=== PATIENT | male | born 1990 | race African-American/Black ===

== ENCOUNTER 2017-04-23 16:59 | Emergency (ER) | payer SELFPAY ==
[~2017-04-23] VITALS: Ht 188 cm; Wt 142.0 kg
[~2017-04-23 16:59] MED LIST: ALBU0.0912 IH; PRON INH
[2017-04-23 17:08] VITALS: BP 150/86
--- NOTE | 2017-04-23 21:00 | NUR ---
PATIENT PRESENTS TO ED WITH S/P FALL C/O PAIN TO LEFT FOOT . PT STATES HE FELL DOWN STAIRS DENIES LOC . DENIES N/V/D; SKIN IS PINK/WARM/DRY; AAOX4 WITH EVEN AND STEADY GAIT; LUNGS CLEAR BL; HR EVEN AND REGULAR; PT DENIES ANY FEVER, CP, SOB, OR COUGH AT THIS TIME; PATIENT STATES PAIN OF 8/10 AT THIS TIME; VSS; PATIENT POSITIONED FOR COMFORT; HOB ELEVATED; BEDRAILS UP X2; BED DOWN. ER MD MADE AWARE OF PT STATUS.
[2017-04-23 21:37] VITALS: BP 145/86
== END 2017-04-23 21:39 | disposition home or self-care (01) ==
LOC: MED 16:59
DX: S93.402A Sprain of unspecified ligament of left ankle, initial encounter (principal); J45.909 Unspecified asthma, uncomplicated; Z79.899 Other long term (current) drug therapy; X58.XXXA Exposure to other specified factors, initial encounter; Y93.02 Activity, running; Y92.89 Other specified places as the place of occurrence of the external cause; Y99.8 Other external cause status
CPT/HCPCS: 73630; 99284

== ENCOUNTER 2017-11-15 05:09 | Emergency (ER) | payer MEDICAID, OTHER ==
[~2017-11-15] VITALS: Ht 188 cm; Wt 137.0 kg
[2017-11-15 05:15] VITALS: BP 155/107
--- NOTE | 2017-11-15 05:18 | NUR ---
PT AMBULATED TO ED BED 4
--- NOTE | 2017-11-15 05:20 | NUR ---
27/M CAME IN ED, C/O SOB X2 DAYS. HX ASTHMA. PT STATED THAT HE FEELS LIKE HE USED HIS NEBULIZER TOO MUCH. LUNG SOUNDS EXPIRATORY WHEEZES BL. SPO2 96% ON ROOM AIR, RR 18 EVEN AND UNLABORED. REPORTS PRODUCTIVE COUGH WITH GREEN PHLEGM. DENIES FEVER, CP, N/V/D. PLACED ON MONITOR. ER MD MADE AWARE.
--- NOTE | 2017-11-15 06:53 | NUR ---
PT RESTING COMFORTABLY IN BED, VSS, RR EVEN AND UNLABORED. ALL NEEDS MET AT THIS TIME.
[2017-11-15] MEDS ORDERED: ALBUTEROL SULFATE/IPRATROPIU 3 ML SOL IH ONE (07:05)
--- NOTE | 2017-11-15 07:05 | NUR ---
RECEIVED REPORT FOR [facility]
[2017-11-15] MEDS ORDERED: DEXAMETHASONE 10 MG/ML VIAL IM ONE (07:10)
--- NOTE | 2017-11-15 07:12 | NUR ---
ADMITTIONG DX: SOB HX: ASTHMA LOC AWAKE AND ALERT HFW POSITION EDUCATION PROVIDE TO PATIENT WITH ACKNOWLEDGEMENT ON HHN THERAPY AND RESPIRATORY DRUG HHN THERAPY GIVEN ORDERED ENCOURAGED PATIENT FOR INTERMITTENT DEEP BREATHING DURING THERAPY
--- NOTE | 2017-11-15 07:12 | NUR ---
RT AT BEDSIDE
--- NOTE | 2017-11-15 07:32 | NUR ---
PT IS RESTING IN NO APPEARENT DISTRESS. PT STATES "I CAN BREATH GOOD NOW " . LS CLEAR THROUGHOUT, ER MD MADE AWARE.
[2017-11-15 08:15] VITALS: BP 146/94
--- NOTE | 2017-11-15 08:15 | NUR ---
Patient discharged with v/s stable. Written and verbal after care instructions given and explained. Patient alert, oriented and verbalized understanding of instructions. Ambulatory with steady gait. All questions addressed prior to discharge. ID band removed. Patient advised to follow up with PMD. Rx of AZITHROMYCIN, PERDNISONE, ALBUTEROL given. Patient educated on indication of medication including possible reaction and side effects. Opportunity to ask questions provided and answered.
== END 2017-11-15 08:15 | disposition home or self-care (01) ==
LOC: MED 05:09
DX: J45.901 Unspecified asthma with (acute) exacerbation (principal); J06.9 Acute upper respiratory infection, unspecified; Z79.899 Other long term (current) drug therapy; Z82.49 Family history of ischemic heart disease and other diseases of the circulatory system
CPT/HCPCS: 71045; 94640; 96372; 99283; J1100; J7620

== ENCOUNTER 2018-12-02 19:39 | Emergency (ER) | payer OTHER ==
[~2018-12-02] VITALS: Ht 188 cm; Wt 129.3 kg
[2018-12-02 20:08] VITALS: BP 155/95
--- NOTE | 2018-12-02 20:12 | NUR ---
TO LOBBY A/W BED AMBULATORY WITH FAMILY
--- NOTE | 2018-12-02 20:50 | NUR ---
PT TAKEN TO BED 5
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
[2018-12-02 21:38] VITALS: BP 155/95
== END 2018-12-02 21:39 | disposition home or self-care (01) ==
LOC: MED 19:39
DX: S20.219A Contusion of unspecified front wall of thorax, initial encounter (principal); S00.511A Abrasion of lip, initial encounter; J34.89 Other specified disorders of nose and nasal sinuses; J45.909 Unspecified asthma, uncomplicated; Z79.899 Other long term (current) drug therapy; V43.52XA Car driver injured in collision with other type car in traffic accident, initial encounter; W22.10XA Striking against or struck by unspecified automobile airbag, initial encounter; Y93.89 Activity, other specified; Y92.488 Other paved roadways as the place of occurrence of the external cause; Y99.8 Other external cause status
CPT/HCPCS: 99283

== ENCOUNTER 2020-10-12 19:36 | Emergency (ER) | payer MEDICAID, OTHER ==
[~2020-10-12] VITALS: Ht 188 cm; Wt 141.1 kg
[2020-10-12] MEDS ORDERED: PENI500T20 PO (21:01)
[2020-10-12] MEDS ORDERED: ONDA-24 PO (21:01)
[2020-10-12] MEDS ORDERED: ACET-8386 PO (21:01)
[2020-10-12] MEDS: KETOROLAC 30 MG/ML VIAL IM ONE (21:18)
[2020-10-12 21:19] VITALS: BP 141/67
== END 2020-10-12 21:15 | disposition home or self-care (01) ==
LOC: MED 19:36
DX: K08.89 Other specified disorders of teeth and supporting structures (principal); J45.909 Unspecified asthma, uncomplicated; Z79.899 Other long term (current) drug therapy
CPT/HCPCS: 96372; 99283; J1885

== ENCOUNTER 2021-01-24 07:39 | Emergency (ER) | payer OTHER, SELFPAY ==
[~2021-01-24] VITALS: Ht 188 cm; Wt 140.6 kg
[~2021-01-24 07:39] MED LIST changes: +ACET-8386 PO; +ONDA-188 PO; +PENI500T20 PO
[2021-01-24 07:58] VITALS: BP 175/100
[2021-01-24] MEDS ORDERED: ALBUTEROL SULFATE/IPRATROPIU 3 ML SOL IH ONE (08:20)
--- NOTE | 2021-01-24 08:20 | NUR ---
Patient ambulated to ER bed 10.
--- NOTE | 2021-01-24 08:32 | NUR ---
NICO SWAB COLLECTED AND WALKED TO LAB.
--- NOTE | 2021-01-24 08:40 | NUR ---
30/M PRESENTS TO ED WITH C/O COLD SYMPTOMS. PATIENT STATES SINCE YESTERDAY HE HAS BEEN HAVING WORSENING COLD SYMPTOMS WITH NO RELIEF, DENIES CP OR SOB. STATES HIS ASTHMA WAS "BOTHERING HIM" BUT AT THE MOMENT HAS NO DISTRESS. PATIENT STATES HE IS COVID VACCINATED BUT STATES HE "FEELS LIKE HE HAS SYMPTOMS." PATIENT IS DIAPHORETIC, NO FEVER UPON ARRIVAL, DENIES ABDOMINAL PAIN, N/V/D, URINARY SYMPTOMS OR CHILLS.
[2021-01-24] MEDS ORDERED: predniSONE 20 MG TAB PO ONE (08:45)
[2021-01-24] MEDS ORDERED: ALBU0.0912 IH (09:52)
[2021-01-24] MEDS ORDERED: AZIT250T4 PO (09:52)
[2021-01-24] MEDS ORDERED: PRED20TA5 PO (09:52)
[2021-01-24 10:18] VITALS: BP 158/98
--- NOTE | 2021-01-24 10:18 | NUR ---
Patient discharged with v/s stable. Written and verbal after care instructions given and explained ABOUT ASTHMA. Patient alert, oriented and verbalized understanding of instructions. Ambulatory with steady gait. All questions addressed prior to discharge. ID band removed. Patient advised to follow up with PMD. Rx of PREDNISONE, ZITHROMAX AND PROVENTIL given. Patient educated on indication of medication including possible reaction and side effects. Opportunity to ask questions provided and answered.
== END 2021-01-24 10:18 | disposition home or self-care (01) ==
LOC: MED 07:39
DX: J20.9 Acute bronchitis, unspecified (principal); J45.909 Unspecified asthma, uncomplicated; Z20.822 Contact with and (suspected) exposure to COVID-19; F17.210 Nicotine dependence, cigarettes, uncomplicated; Z79.51 Long term (current) use of inhaled steroids; Z79.899 Other long term (current) drug therapy; Z79.891 Long term (current) use of opiate analgesic; Z79.2 Long term (current) use of antibiotics
CPT/HCPCS: 71045; 87426; 94640; 99284; J7512; Q0092

== ENCOUNTER 2021-02-22 22:01 | Emergency (ER) | payer OTHER, SELFPAY ==
[~2021-02-22] VITALS: Ht 188 cm; Wt 140.6 kg
[~2021-02-22 22:01] MED LIST changes: +AZIT250T4 PO; +PRED20TA5 PO
[2021-02-22 22:10] VITALS: BP 128/87
--- NOTE | 2021-02-22 22:10 | NUR ---
patient in the tent
[2021-02-22] MEDS ORDERED: AMOX500C25 PO (22:43)
[2021-02-22] MEDS ORDERED: NAPR-54 PO (22:43)
[2021-02-22] MEDS ORDERED: DEXAMETHASONE 10 MG/ML VIAL PO ONE (22:45)
--- NOTE | 2021-02-22 23:13 | NUR ---
Patient discharged with v/s stable. Written and verbal after care instructions given and explained. Patient alert, oriented and verbalized understanding of instructions. Ambulatory with steady gait. All questions addressed prior to discharge. ID band removed. Patient advised to follow up with PMD. Rx of amoxicillin and naprosyn given. Patient educated on indication of medication including possible reaction and side effects. Opportunity to ask questions provided and answered.
[2021-02-22 23:16] VITALS: BP 128/87
== END 2021-02-22 23:13 | disposition home or self-care (01) ==
LOC: MED 22:01
DX: J02.9 Acute pharyngitis, unspecified (principal); F17.210 Nicotine dependence, cigarettes, uncomplicated; J45.909 Unspecified asthma, uncomplicated; Z79.899 Other long term (current) drug therapy
CPT/HCPCS: 87081; 99283; J1100

== ENCOUNTER 2021-02-26 06:54 | Emergency (ER) | payer OTHER ==
[~2021-02-26] VITALS: Ht 188 cm; Wt 148.4 kg
[~2021-02-26 06:54] MED LIST changes: +AMOX500C25 PO; +NAPR-54 PO
[2021-02-26 07:12] VITALS: BP 155/94
--- NOTE | 2021-02-26 07:17 | NUR ---
PT AMB TO BED 6.
[2021-02-26] MEDS ORDERED: KETOROLAC 15 MG/ML VIAL IVP ONE (07:25)
[2021-02-26] MEDS ORDERED: NACL 0.9% 1,000 ML IV ONE (07:25)
[2021-02-26] MEDS ORDERED: MECLIZINE 25 MG TAB PO ONE (07:30)
--- NOTE | 2021-02-26 07:35 | NUR ---
30 Y/O MALE BIB SELF FOR C/O OF 10/10 SHARP HEADACHE AND DIZZINESS. PT ABLE TO AMBULATE STEADILY BUT COMPLAINS OF FEELING IF HE IS SWAYING. AOX4, ABLE TO MAKE ALL NEEDS KNOWN. DENIES D/V. + NAUSEA. VISION IS CLEAR AND NO RECENT CHANGES HAS SEEN. PMHX: ASTHMA HOME MEDICATIONS: NONE ALLERGIES: DENIES
--- NOTE | 2021-02-26 07:45 | NUR ---
PT TAKEN TO RADIOLOGY IN [facility] FOR CT
[2021-02-26 07:46] LABS: BASOPHILS # (AUTO) 0.1 K/uL (0.00-0.22); BASOPHILS % (AUTO) 1.1 % (0.0-2.0); EOSINOPHILS # (AUTO) 0.2 K/uL (0-0.4); EOSINOPHILS % (AUTO) 2.2 % (0.0-4.0); HEMATOCRIT 42.6 % (36-52); HEMOGLOBIN 14.3 g/dL (12.0-18.0); LYMPHOCYTES # (AUTO) 2.2 K/uL (2.0-11.5); LYMPHOCYTES % (AUTO) 22.5 % (20.5-51.1); MEAN CORPUSCULAR HEMOGLOBIN 29 pg (27-31); MEAN CORPUSCULAR HGB CONC 34 g/dL (33-37); MEAN CORPUSCULAR VOLUME 87.4 fL (80-94); MONOCYTES # (AUTO) 0.5 K/uL (0.8-1.0); MONOCYTES % (AUTO) 5.6 % (1.7-9.3); NEUTROPHILS # (AUTO) 6.5 K/uL (1.8-7.7); NEUTROPHILS % (AUTO) 68.6 % (42.2-75.2); PLATELET COUNT (AUTO) 327 K/uL (140-450); RED BLOOD CELL COUNT(AUTO) 4.87 MIL/uL (4.20-6.10); RED CELL DISTRIBUTION WIDTH 14.6 % (11.6-13.7); WHITE BLOOD COUNT (AUTO) 9.6 K/uL (4.8-10.8)
--- NOTE | 2021-02-26 07:50 | NUR ---
PT RETURNED FROM CT TO 06
[2021-02-26 08:01] LABS: ALBUMIN 3.6 g/dL (3.4-5.0); ANION GAP 8.2 (8-16); CARBON DIOXIDE 28.9 mmol/L (21-32); CREATININE 1.1 mg/dL (0.6-1.3); POTASSIUM 4.1 mmol/L (3.5-5.1); TOTAL BILIRUBIN 0.4 mg/dL (0.0-1.0)
[2021-02-26 08:01] LABS: PROTHROMBIN TIME 10.3 secs (10.8-13.4)
--- NOTE | 2021-02-26 08:40 | NUR ---
URINE OBTAINED AND DIPPED, RESULTS GIVEN TO ERMD.
[2021-02-26] MEDS ORDERED: IBUP-2213 PO (09:10)
[2021-02-26] MEDS ORDERED: MECL-231 PO (09:10)
[2021-02-26] MEDS ORDERED: ACET-10509 PO (09:10)
[2021-02-26 09:32] VITALS: BP 137/73
--- NOTE | 2021-02-26 09:32 | NUR ---
Patient discharged with v/s stable. Written and verbal after care instructions given and explained WITH TEACHBACK. Patient alert, oriented and verbalized understanding of instructions. Ambulatory with steady gait. All questions addressed prior to discharge. ID band removed. Patient advised to follow up with PMD. Rx of ACETAMINOPHEN/IBUPROFEN/MECLIZONE HCL given. Patient educated on indication of medication including possible reaction and side effects. Opportunity to ask questions provided and answered.
== END 2021-02-26 09:32 | disposition home or self-care (01) ==
LOC: MED 06:56
DX: R51.9 Headache, unspecified (principal); E86.0 Dehydration; R42 Dizziness and giddiness; J45.909 Unspecified asthma, uncomplicated; Z79.899 Other long term (current) drug therapy; Z79.1 Long term (current) use of non-steroidal anti-inflammatories (NSAID); Z79.2 Long term (current) use of antibiotics; Z79.51 Long term (current) use of inhaled steroids; Z79.891 Long term (current) use of opiate analgesic
CPT/HCPCS: 36415; 70450; 80053; 81002; 85025; 85610; 96361; 96374; 99285; J1885; J7030; J8597

== ENCOUNTER 2022-06-22 21:12 | Emergency (ER) | payer OTHER ==
[~2022-06-22] VITALS: Ht 188 cm; Wt 140.6 kg
[~2022-06-22 21:12] MED LIST changes: +ACET-10509 PO; -ACET-8386 PO; +ACET-8905 PO; +IBUP-2213 PO; +MECL-231 PO
[2022-06-22 21:15] VITALS: BP 160/110
--- NOTE | 2022-06-22 21:15 | NUR ---
TO BED AMBULATORY
--- NOTE | 2022-06-22 22:20 | NUR ---
Pt is evaluation of sore throat for weak and trouble of swallowing lately with association of flu like symptom.
[2022-06-22] MEDS ORDERED: ACET-8905 PO (23:10)
[2022-06-22] MEDS ORDERED: DEXAMETHASONE 10 MG/ML VIAL PO ONE (23:10)
[2022-06-22] MEDS ORDERED: AMOX500C25 PO (23:10)
[2022-06-22] MEDS ORDERED: NAPR-54 PO (23:10)
[2022-06-22 23:25] VITALS: BP 140/78
--- NOTE | 2022-06-22 23:26 | NUR ---
Patient discharged with v/s stable. Written and verbal after care instructions given and explained. Patient verbalized understanding. Ambulatory with steady gait. All questions addressed prior to discharge. Advised to follow up with PMD. pt left with his belongings.
== END 2022-06-22 23:26 | disposition home or self-care (01) ==
LOC: MED 21:12
DX: J02.9 Acute pharyngitis, unspecified (principal); J45.909 Unspecified asthma, uncomplicated; Z79.899 Other long term (current) drug therapy
CPT/HCPCS: 87081; 99283; J1100

== ENCOUNTER 2022-08-26 10:04 | Emergency (ER) | payer OTHER ==
[~2022-08-26] VITALS: Ht 188 cm; Wt 158.8 kg
[2022-08-26 10:16] VITALS: BP 130/86
[2022-08-26] MEDS ORDERED: LOPE2CAP5 PO (10:37)
[2022-08-26] MEDS ORDERED: IBUP-2213 PO (10:37)
[2022-08-26] MEDS ORDERED: ALBU0.0912 IH (10:37)
[2022-08-26 10:44] VITALS: BP 130/86
== END 2022-08-26 10:45 | disposition home or self-care (01) ==
LOC: MED 10:04
DX: U07.1 COVID-19 (principal); R19.7 Diarrhea, unspecified; J45.909 Unspecified asthma, uncomplicated; Z79.899 Other long term (current) drug therapy
CPT/HCPCS: 99283

== ENCOUNTER 2022-10-24 17:40 | Inpatient (IN) | payer OTHER ==
[~2022-10-24] VITALS: Ht 188 cm; Wt 104.3 kg
[~2022-10-24 17:40] MED LIST changes: +LOPE2CAP5 PO
--- NOTE | 2022-10-24 17:50 | NUR ---
PT AMBULATED TO BED 9
[2022-10-24 17:52] VITALS: BP 126/75; PULSE 102; RESP 18; TEMP 98.1; O2SAT 98
--- NOTE | 2022-10-24 18:00 | NUR ---
MD BERGER AT BEDSIDE FOR EVALUATION
--- NOTE | 2022-10-24 18:07 | NUR ---
32YO MALE PT C/O GEN BODY CRAMPING xTODAY. REPORTS SUDDEN ONSET WHILE AT WORK W/ INTERMITTENT EPISODES OF DIZZINESS AND WEAKNESS. PAIN AT MOST ON MOVEMENT. BELIEVES SYMPTOMS ARE D/T RECENTLY STARTING NEW BP RX : AMLODIPINE AND TRIAMTERENE X2DAYS. DENIES N/V, CHEST PAIN, SOB, BLURRY VISION OR TAKING PAIN MEDICATION. PT AAOX4, AMB W/ STEADY GAIT. HOB POSITIONED PER COMFORT. CALL LIGHT WITHIN REACH. HX: HTN, ASTHMA NKA
[2022-10-24] MEDS ORDERED: CYCLOBENZAPRINE 10 MG TAB PO ONE (18:10)
[2022-10-24] MEDS ORDERED: KETOROLAC 15 MG/ML VIAL IVP ONE (18:10)
[2022-10-24] MEDS ORDERED: NACL 0.9% 1,000 ML IV ONE ×3 (18:10→21:40)
[2022-10-24 18:26] LABS: BASOPHILS # (AUTO) 0.1 K/uL (0.00-0.22); BASOPHILS % (AUTO) 0.8 % (0.0-2.0); EOSINOPHILS # (AUTO) 0.2 K/uL (0-0.4); EOSINOPHILS % (AUTO) 1.2 % (0.0-4.0); HEMATOCRIT 42.7 % (36-52); HEMOGLOBIN 13.9 g/dL (12.0-18.0); LYMPHOCYTES # (AUTO) 1.9 K/uL (2.0-11.5); LYMPHOCYTES % (AUTO) 13.7 % (20.5-51.1); MEAN CORPUSCULAR HEMOGLOBIN 28 pg (27-31); MEAN CORPUSCULAR HGB CONC 33 g/dL (33-37); MEAN CORPUSCULAR VOLUME 84.4 fL (80-94); MONOCYTES # (AUTO) 0.8 K/uL (0.8-1.0); MONOCYTES % (AUTO) 6.1 % (1.7-9.3); NEUTROPHILS # (AUTO) 10.9 K/uL (1.8-7.7); NEUTROPHILS % (AUTO) 78.2 % (42.2-75.2); PLATELET COUNT (AUTO) 348 K/uL (140-450); RED BLOOD CELL COUNT(AUTO) 5.06 MIL/uL (4.20-6.10)
[2022-10-24 18:39] LABS: CARBON DIOXIDE 29.2 mmol/L (21-32); CREATININE 1.8 mg/dL (0.6-1.3); POTASSIUM 4.2 mmol/L (3.5-5.1)
[2022-10-24 19:14] LABS: CKMB RELATIVE INDEX 0.3 (0.0-2.5); CREATINE KINASE MB 2.6 ng/mL (0-3.6)
--- NOTE | 2022-10-24 19:33 | NUR ---
REPORT GIVEN TO CAHRLEE IRVING. TRANSFER OF CARE AT THIS TIME
[2022-10-24 20:18] LABS: CREATININE 1.5 mg/dL (0.6-1.3)
[2022-10-24] MEDS ORDERED: ACETAMINOPHEN 325 MG TAB PO PRN (20:50)
[2022-10-24] MEDS ORDERED: ONDANSETRON 4 MG/2 ML VIAL IVP PRN (20:50)
[2022-10-24] MEDS ORDERED: POTASSIUM CHLORIDE 10 MEQ TABER PO PRN (20:50)
[2022-10-24] MEDS ORDERED: HYDROcodone/APAP 5/325 MG 1 TAB TAB PO PRN (20:50)
[2022-10-24] MEDS ORDERED: MAGNESIUM OXIDE 400 MG TAB PO PRN (20:50)
[2022-10-24] MEDS ORDERED: LORazepam 1 MG TAB PO PRN (20:50)
[2022-10-24] MEDS ORDERED: MORPHINE SULFATE 4 MG/ML SYR IVP PRN (20:50)
[2022-10-24] MEDS ORDERED: HYDR25TA32 PO (21:22)
[2022-10-24] MEDS ORDERED: ALBU0.0912 IH (21:22)
[2022-10-24] MEDS ORDERED: AMLO10TA PO (21:22)
--- NOTE | 2022-10-24 21:34 | NUR ---
UPDATED PT ON POC, PT WANTING TO SPEAK WITH DR. BERGER. DR. BERGER AT BEDSIDE TO DISCUSS POC WITH PT.
--- NOTE | 2022-10-24 22:22 | NUR ---
PROVIDED PT SANDWICH AND WATER AT THIS TIME. PT IN POSITION OF COMFORT.
--- NOTE | 2022-10-25 00:15 | NUR ---
Patient asleep and comfortable in bed with side rails up and call light within reach. No complaints of pain or signs of acute distress at this time.
[2022-10-25 01:40] LABS: APPEARANCE,URINE CLEAR (CLEAR); BILIRUBIN,URINE NEGATIVE (NEGATIVE); BLOOD, URINE NEGATIVE (NEGATIVE); COLOR,URINE YELLOW (YELLOW); LEUKOCYTE ESTERASE ,URINE NEGATIVE (NEGATIVE); NITRITE, URINE NEGATIVE (NEGATIVE); UGLUCOSE NEGATIVE (NEGATIVE)
--- NOTE | 2022-10-25 02:15 | NUR ---
Patient will be admitted to care of Dr. Angeles. Admited to Telemetry. Will go to room 105B. Belongings list completed. Report to Nancy IRVING.
[2022-10-25 02:30] VITALS: BP 121/73; PULSE 91; PULSE 93; RESP 16; RESP 18; TEMP 98.3; O2SAT 97
--- NOTE | 2022-10-25 02:30 | NUR ---
RECEIVED PT FROM ER AWAKE, ALERT AND ORIENTED. DENIES PAIN AT THIS TIME. NO ACUTE RESPIRATORY DISTRESS. SKIN WARM AND DRY TO TOUCH. ORIENTED TO MST SET UP, PROVIDED CALL LIGHT, INSTRUCTIONS ON USE PROVIDED, RETURN DEMO DONE. BED IN THE LOWEST AND LOCKED POSITION FOR SAFETY.
[2022-10-25] MEDS: NACL 0.9% 1,000 ML IV SCH ×3 (02:38→10:10)
[2022-10-25 04:00] VITALS: BP 128/67; PULSE 88; PULSE 91; RESP 16; TEMP 98.2; O2SAT 98
--- NOTE | 2022-10-25 06:23 | NUR ---
PATIENT IS ASLEEP. NO DISTRESS NOTED. ALL NEEDS ATTENDED TO. SAFETY PRECAUTIONS MAINTAINED DURING THE SHIFT, CALL LIGHT REMAINS WITHIN REACH.
[2022-10-25 07:04] LABS: BASOPHILS # (AUTO) 0.1 K/uL (0.00-0.22); EOSINOPHILS # (AUTO) 0.3 K/uL (0-0.4); EOSINOPHILS % (AUTO) 3.1 % (0.0-4.0); HEMATOCRIT 38.3 % (36-52); HEMOGLOBIN 12.5 g/dL (12.0-18.0); LYMPHOCYTES # (AUTO) 2.1 K/uL (2.0-11.5); LYMPHOCYTES % (AUTO) 23.5 % (20.5-51.1); MEAN CORPUSCULAR HEMOGLOBIN 27 pg (27-31); MEAN CORPUSCULAR HGB CONC 33 g/dL (33-37); MEAN CORPUSCULAR VOLUME 84.2 fL (80-94); MONOCYTES # (AUTO) 0.7 K/uL (0.8-1.0); MONOCYTES % (AUTO) 7.9 % (1.7-9.3); NEUTROPHILS # (AUTO) 5.7 K/uL (1.8-7.7); NEUTROPHILS % (AUTO) 64.5 % (42.2-75.2); PLATELET COUNT (AUTO) 270 K/uL (140-450); RED BLOOD CELL COUNT(AUTO) 4.55 MIL/uL (4.20-6.10); RED CELL DISTRIBUTION WIDTH 14.9 % (11.6-13.7); WHITE BLOOD COUNT (AUTO) 8.8 K/uL (4.8-10.8)
[2022-10-25 07:07] LABS: ALBUMIN 3.1 g/dL (3.4-5.0); ANION GAP 12.9 (8-16); CARBON DIOXIDE 26.5 mmol/L (21-32); CREATININE 1.2 mg/dL (0.6-1.3); MAGNESIUM 2.1 mg/dL (1.8-2.4); POTASSIUM 4.4 mmol/L (3.5-5.1); TOTAL BILIRUBIN 0.3 mg/dL (0.0-1.0)
--- NOTE | 2022-10-25 07:38 | NUR ---
RECEIVED PT CARE AND REPORT FROM ESSIE DAMON SHIFT NURSE. PT IS RESTING ON RIGHT SIDE, A&OX4, PT APPEARS TO BE WAKING UP. NO VISIBLE S/S OF DISTRESS OR DISCOMFORT. PT DENIES ANY PAIN OR SOB AT THIS TIME. CALL LIGHT IS WITHIN REACH, ALL NEEDS MET AT THIS TIME.
[2022-10-25 08:00] VITALS: BP 125/71; PULSE 88; PULSE 90; RESP 18; TEMP 97.6; O2SAT 95
--- NOTE | 2022-10-25 08:39 | NUR ---
PATIENT HAS BEEN SCREENED AND CATEGORIZED LOW NUTRITION RISK. PATIENT WILL BE SEEN WITHIN 7 DAYS OF ADMISSION. 11/01/[address]
--- NOTE | 2022-10-25 10:00 | NUR ---
AM MEDICATION ADMINISTERED ORDERED.
[2022-10-25 10:58] VITALS: BP 125/71; PULSE 88; RESP 18; TEMP 97.6
--- NOTE | 2022-10-25 11:15 | NUR ---
DISCHARGE PAPERWORK AND EDUCATION PROVIDED FOR PATIENT. PT SIGNED DC PAPERWORK, PLACED IN CHART. PT IV REMOVED WITH CATHETER INTACT. NO S/S OF SWELLING, REDNESS OR PAIN AT SITE. ID BAND REMOVED. TELE BOX RETURNED TO TELE MONITOR. PT IS A&OX4, AMBULATORY. STATED HE DROVE HIMSELF. WALKED WITH PT TO [facility]. PT WALKED TO CAR.
== END 2022-10-25 11:30 | disposition home or self-care (01) | DRG 558 ==
LOC: MED 17:40 → MTU 10-25 01:49
PROVIDERS: ADMIT Internal Medicine; ATTEND Internal Medicine
DX: M62.82 Rhabdomyolysis (principal); N17.9 Acute kidney failure, unspecified; E44.0 Moderate protein-calorie malnutrition; I10 Essential (primary) hypertension; J45.909 Unspecified asthma, uncomplicated; E86.0 Dehydration; D72.829 Elevated white blood cell count, unspecified; Z79.899 Other long term (current) drug therapy; Z79.1 Long term (current) use of non-steroidal anti-inflammatories (NSAID); Z79.891 Long term (current) use of opiate analgesic; Z68.29 Body mass index [BMI] 29.0-29.9, adult
CPT/HCPCS: 36415; 80048; 80053; 81003; 82550; 82553; 83735; 85025; 87081; 96361; 96374; 99285; J1644; J1885

== ENCOUNTER 2023-09-07 08:25 | Emergency (ER) | payer OTHER ==
[~2023-09-07] VITALS: Ht 188 cm; Wt 172.4 kg
[~2023-09-07 08:25] MED LIST changes: -ACET-8905 PO; +AMLO10TA PO; -AMOX500C25 PO; -AZIT250T4 PO; -IBUP-2213 PO; -NAPR-54 PO; -PENI500T20 PO; -PRED20TA5 PO; -PRON INH
[2023-09-07 08:26] VITALS: BP 193/84; PULSE 92; RESP 19; TEMP 97.3; O2SAT 94
[2023-09-07 09:21] VITALS: PULSE 87; RESP 16; O2SAT 96
[2023-09-07] MEDS: IPRATROPIUM 0.02% 0.5 MG/2.5 ML NEBU INH ONE (09:21)
[2023-09-07] MEDS: ALBUTEROL 0.083% 2.5 MG/3 ML NEBU INH ONE (09:21)
[2023-09-07] MEDS ORDERED: predniSONE 20 MG TAB ONE (10:20)
[2023-09-07] MEDS: predniSONE 20 MG TAB PO ONE (10:21)
[2023-09-07] MEDS ORDERED: PRED20TA5 PO (10:39)
[2023-09-07 11:04] VITALS: BP 170/104; PULSE 89; RESP 16; TEMP 97.3; O2SAT 99
== END 2023-09-07 11:04 | disposition home or self-care (01) ==
LOC: MED 08:25
DX: J45.901 Unspecified asthma with (acute) exacerbation (principal); I10 Essential (primary) hypertension; Z79.899 Other long term (current) drug therapy
CPT/HCPCS: 94640; 99283; J7512; J7613; J7644